=== PATIENT | female | born 1965 | race Hispanic/Latino ===

== ENCOUNTER 2019-01-24 10:53 | Outpatient (CLI) | payer BC ==
--- NOTE | 2019-01-24 11:35 | ULT ---
ULTRASOUND ABDOMEN: HISTORY: Abdominal pain and bloating FINDINGS: The liver demonstrates increased echogenicity consistent with fatty infiltration. No focal mass or in trahepatic ductal dilatation is seen. The common duct measures 6 m in diameter. The gallbladder, spleen, kidneys, pancreas and visualized portions of the aorta and IVC appear normal . No free fluid is seen. IMPRESSION: Fatty liver.
== END 2019-01-24 10:54 | disposition home or self-care (01) ==
LOC: SCSULT 10:53
PROVIDERS: ATTEND Physician Assistant
DX: M54.6 Pain in thoracic spine (principal); R10.9 Unspecified abdominal pain; R14.0 Abdominal distension (gaseous); K76.0 Fatty (change of) liver, not elsewhere classified
CPT/HCPCS: 76700

== ENCOUNTER 2024-12-31 08:08 | Outpatient (CLI) | payer OTHER | END 2024-12-31 08:09 | disposition home or self-care (01) | LOC: SCSMRI 08:08 | PROVIDERS: ATTEND Family Medicine | DX: S40.022D Contusion of left upper arm, subsequent encounter (principal); M75.112 Incomplete rotator cuff tear or rupture of left shoulder, not specified as traumatic; S43.402A Unspecified sprain of left shoulder joint, initial encounter; R60.0 Localized edema ==